=== PATIENT | male | born 1955 | race Caucasian/White ===

== ENCOUNTER 2016-11-30 06:23 | Day surgery (SDC) | payer OTHER ==
[~2016-11-30 06:23] MED LIST: BUPIVACAINE HCL 0.75% INJ/PF (7.5 MG/1 ML) 10 ML SDV OD PRN; KETOROLAC TROMETHAMINE 0.45% 4 DROP/0.4 ML DROPERETTE OD PRN; LIDOCAINE 4% INJ/PF (40 MG/ML) 5 ML AMPUL OD PRN
[2016-11-30] MEDS: TROPICAMIDE 1% OPH SOLN 3 ML OD PRN ×3 (06:44→07:23)
[2016-11-30] MEDS: CYCLOPENTOLATE 0.2%/PHENYLEPHRINE 1% OPH SOLN 2 ML OD PRN ×3 (06:44→07:23)
[2016-11-30] MEDS: BESIFLOXACIN HCL 0.6% OPH SUSP 5 ML BOTTLE OD PRN ×4 (06:45→08:06)
[2016-11-30] MEDS: TETRACAINE HCL 0.5% OPH SOLN 0.6 ML DROPERETTE OD PRN ×2 (06:46→07:24)
[2016-11-30] MEDS ORDERED: MIDAZOLAM 2 MG/2 ML INJ ONE (07:14)
[2016-11-30] MEDS ORDERED: EPINEPHRINE INJ/PF 1 MG/1 ML AMPULE ONE (07:19)
[2016-11-30] MEDS ORDERED: LIDOCAINE 1% INJ-PF (10 MG/ML) 30 ML SDV ONE (07:20)
[2016-11-30] MEDS ORDERED: CHONDR SU A NA/HYALUR INTRAOC KIT (SURGICARE) ONE (07:20)
--- NOTE | 2016-11-30 08:23 | [facility] DISCHARGE SUMMARY E ---
[facility] Discharge Summary NAME: ALDO RDZ AGE: 60Y ADMITTED: 11/30/2016 DISCHARGED: 11/30/2016 PREOPERATIVE DIAGNOSIS: Cataract, right eye. POSTOPERATIVE DIAGNOSIS: Cataract, right eye. HOSPITAL COURSE: The patient is a 60-year-old gentleman who underwent uneventful cataract extraction with intraocular lens implant, right eye, on 11/30/2016. He will be discharged to home. He was instructed to resume preoperative medications, take Tylenol as needed for discomfort, to keep his eye shielded, to use Besivance, Durezol, and Ilevro at 3 p.m. and 8 p.m., and to followup in my office in 1 day. DICTATING PHYSICIAN: MEAGAN REDDY M.D. 1211M 19 PHY#: [id number] ID: [id number] JOB#: [id number] ACCT: [id number] cc:MEAGAN REDDY M.D. >
--- NOTE | 2016-11-30 08:23 | [facility] OPERATIVE REPORT E ---
[facility] Operative Report NAME: ALDO RDZ AGE: 60Y DATE OF SURGERY: 11/30/2016 ROOM: PREOPERATIVE DIAGNOSIS: Cataract, right eye. POSTOPERATIVE DIAGNOSIS: Cataract, right eye. PROCEDURE PERFORMED: Phacoemulsification with posterior chamber intraocular lens, right eye. SURGEON: Kimberly Reddy MD ANESTHESIA: Topical with MAC. INDICATIONS FOR SURGERY: Difficulty driving at night. Best corrected visual acuity 20/40. PROCEDURE: The patient was brought to the operating room and placed on the operative table. Following tetracaine drops, topical anesthesia was administered. This consisted of instrument wipe pledgets soaked in a solution of 4% Xylocaine mixed with 0.75% Marcaine in a 1:2 ratio. A 2 x 1 cm pledget was placed in the superior fornix. A 1 x 1 cm pledget was placed in the inferior fornix. The eye was patched shut for 5 minutes. The patch was removed. The eye was sterilely prepped and draped in the usual manner. Lid speculum was placed in the eye. The pledgets were removed. 4-0 black silk sutures were placed around the superior and the inferior rectus muscles to be used as traction. A conjunctival peritomy was made at the 10 o'clock position. Hemostasis was obtained with bipolar cautery. A posterior limbal groove was created using a crescent knife and dissected anteriorly towards the cornea. A sharp point blade was used to create a paracentesis site at the 2 o'clock position. A 2.4 mm keratome was used to enter the anterior chamber through the groove. Viscoelastic was injected into the anterior chamber. There was a dense synechiae of the iris to the lens at the 1 oclock postion. viscoelatic would not release the adhesion. vaness scissors were place into the anterior chamber and the iris was released from the lens capsule without causing a capsular defect. An anterior capsulotomy was performed using Utrata forceps in a capsulorrhexis fashion, encompassing the scar. Hydrodissection and hydrodelineation were performed. Phacoemulsification was performed in kfzbcl-euo-mffkgnv technique. A total of 24 seconds phaco time was used. Following this, the I/A unit was used to remove residual cortex. Viscoelastic was injected into the capsular bag. Intraocular lens model SN60WF, 17.0 diopters, serial number [id number] was placed in the capsular bag. The I/A unit was used to remove residual viscoelastic. The wound was seen to be watertight under high and low pressure, and no sutures were placed. The intraocular lens was well centered. The pressure was adjusted in the eye to normal pressure. The 4-0 black silk sutures and lid speculum were removed. The eye was shielded after Besivance drops were placed. The patient tolerated the procedure well and was sent to the recovery room in good condition. DICTATING PHYSICIAN: KIMBERLY REDDY M.D. 1211M 16 PHY#: [id number] ID: [id number] JOB#: [id number] ACCT: [id number] cc:KIMBERLY REDDY M.D. > MTDD
== END 2016-11-30 08:45 | disposition home or self-care (01) ==
LOC: SC 06:23
PROVIDERS: ATTEND Ophthalmology
PROC: 08RJ3JZ Replacement of Right Lens with Synthetic Substitute, Percutaneous Approach (ICD-10-PCS; principal; 2016-11-30 07:30)
DX: H25.811 Combined forms of age-related cataract, right eye (principal); E11.9 Type 2 diabetes mellitus without complications; I11.9 Hypertensive heart disease without heart failure; E78.00 Pure hypercholesterolemia, unspecified; E03.9 Hypothyroidism, unspecified; M11.9 Crystal arthropathy, unspecified; K21.9 Gastro-esophageal reflux disease without esophagitis; M10.9 Gout, unspecified; D64.9 Anemia, unspecified; Z87.891 Personal history of nicotine dependence; Z79.51 Long term (current) use of inhaled steroids; Z79.84 Long term (current) use of oral hypoglycemic drugs; Z79.1 Long term (current) use of non-steroidal anti-inflammatories (NSAID)
CPT/HCPCS: 66984; 82962; V2632; J2250; J3490 ×4; J0171; 142

== ENCOUNTER 2016-12-21 08:45 | Day surgery (SDC) | payer OTHER ==
[~2016-12-21 08:45] MED LIST changes: -BUPIVACAINE HCL 0.75% INJ/PF (7.5 MG/1 ML) 10 ML SDV OD PRN; +BUPIVACAINE HCL 0.75% INJ/PF (7.5 MG/1 ML) 10 ML SDV OS PRN; -KETOROLAC TROMETHAMINE 0.45% 4 DROP/0.4 ML DROPERETTE OD PRN; +KETOROLAC TROMETHAMINE 0.45% 4 DROP/0.4 ML DROPERETTE OS PRN; -LIDOCAINE 4% INJ/PF (40 MG/ML) 5 ML AMPUL OD PRN; +LIDOCAINE 4% INJ/PF (40 MG/ML) 5 ML AMPUL OS PRN
[2016-12-21] MEDS ORDERED: EPINEPHRINE INJ/PF 1 MG/1 ML AMPULE ONE (08:54)
[2016-12-21] MEDS ORDERED: LIDOCAINE 1% INJ-PF (10 MG/ML) 30 ML SDV ONE (08:55)
[2016-12-21] MEDS: CYCLOPENTOLATE 0.2%/PHENYLEPHRINE 1% OPH SOLN 2 ML OS PRN ×3 (09:31→09:51)
[2016-12-21] MEDS: TROPICAMIDE 1% OPH SOLN 3 ML OS PRN ×3 (09:31→09:51)
[2016-12-21] MEDS: TETRACAINE HCL 0.5% OPH SOLN 0.6 ML DROPERETTE OS PRN ×2 (09:32→09:51)
[2016-12-21] MEDS: BESIFLOXACIN HCL 0.6% OPH SUSP 5 ML BOTTLE OS PRN ×4 (09:32→10:41)
[2016-12-21] MEDS ORDERED: MIDAZOLAM 2 MG/2 ML INJ ONE (10:04)
[2016-12-21] MEDS: CHONDR SU A NA/HYALUR INTRAOC KIT (SURGICARE) ONE ×2 (10:32)
--- NOTE | 2016-12-21 10:51 | [facility] DISCHARGE SUMMARY E ---
[facility] Discharge Summary NAME: ALDO RDZ AGE: 60Y ADMITTED: 12/21/2016 DISCHARGED: 12/21/2016 PREOPERATIVE DIAGNOSIS: Cataract, left eye. POSTOPERATIVE DIAGNOSIS: Cataract, left eye. HOSPITAL COURSE: The patient is a 60-year-old gentleman who underwent uneventful cataract extraction with intraocular lens implant, left eye, on 12/21/2016. He will be discharged to home. He was instructed to resume preoperative medications, take Tylenol as needed for discomfort, to keep his eye shielded, to use Besivance, Durezol, and Ilevro at 3 p.m. and 8 p.m., and to followup in my office in 1 day. DICTATING PHYSICIAN: MEAGAN REDDY M.D. 1211M 1049 PHY#: [id number] ID: [id number] JOB#: [id number] ACCT: [id number] cc:MEAGAN REDDY M.D. >
--- NOTE | 2016-12-21 10:52 | [facility] OPERATIVE REPORT E ---
[facility] Operative Report NAME: ALDO RDZ AGE: 60Y DATE OF SURGERY: 12/21/2016 ROOM: PREOPERATIVE DIAGNOSIS: Cataract, left eye. POSTOPERATIVE DIAGNOSIS: Cataract, left eye. PROCEDURE PERFORMED: Phacoemulsification with posterior chamber intraocular lens, left eye. SURGEON: Kimberly Reddy MD ANESTHESIA: Topical with MAC. INDICATIONS FOR SURGERY: Difficulty reading road [place]. Best corrected visual acuity 20/50. PROCEDURE: The patient was brought to the operating room and placed on the operative table. Following tetracaine drops, topical anesthesia was administered. This consisted of instrument wipe pledgets soaked in a solution of 4% Xylocaine mixed with 0.75% Marcaine in a 1:2 ratio. A 2 x 1 cm pledget was placed in the superior fornix. A 1 x 1 cm pledget was placed in the inferior fornix. The eye was patched shut for 5 minutes. The patch was removed. The eye was sterilely prepped and draped in the usual manner. Lid speculum was placed in the eye. The pledgets were removed. 4-0 black silk sutures were placed around the superior and the inferior rectus muscles to be used as traction. A conjunctival peritomy was made at the 10 o'clock position. Hemostasis was obtained with bipolar cautery. A posterior limbal groove was created using a crescent knife and dissected anteriorly towards the cornea. A sharp point blade was used to create a paracentesis site at the 2 o'clock position. A 2.4 mm keratome was used to enter the anterior chamber through the groove. Viscoelastic was injected into the anterior chamber. An anterior capsulotomy was performed using Utrata forceps in a capsulorrhexis fashion. Hydrodissection and hydrodelineation were performed. Phacoemulsification was performed in bjnwqa-jtg-bntkcnx technique. A total of 36 seconds phaco time was used. Following this, the I/A unit was used to remove residual cortex. Viscoelastic was injected into the capsular bag. Intraocular lens model SN60WF, 19.0 diopters, serial number [id number] was placed in the capsular bag. The I/A unit was used to remove residual viscoelastic. The wound was seen to be watertight under high and low pressure, and no sutures were placed. The intraocular lens was well centered. The pressure was adjusted in the eye to normal pressure. The 4-0 black silk sutures and lid speculum were removed. The eye was shielded after Besivance drops were placed. The patient tolerated the procedure well and was sent to the recovery room in good condition. DICTATING PHYSICIAN: KIMBERLY REDDY M.D. 1211M [id number] PHY#: [id number] ID: [id number] JOB#: [id number] ACCT: [id number] cc:KIMBERLY REDDY M.D. >
== END 2016-12-21 11:12 | disposition home or self-care (01) ==
LOC: SC 08:45
PROVIDERS: ATTEND Ophthalmology
PROC: 08RK3JZ Replacement of Left Lens with Synthetic Substitute, Percutaneous Approach (ICD-10-PCS; principal; 2016-12-21 10:30)
DX: H25.812 Combined forms of age-related cataract, left eye (principal); Z96.1 Presence of intraocular lens; J44.9 Chronic obstructive pulmonary disease, unspecified; I10 Essential (primary) hypertension; M19.90 Unspecified osteoarthritis, unspecified site; E11.9 Type 2 diabetes mellitus without complications; D64.9 Anemia, unspecified; Z79.51 Long term (current) use of inhaled steroids; Z79.899 Other long term (current) drug therapy; Z79.1 Long term (current) use of non-steroidal anti-inflammatories (NSAID); Z79.84 Long term (current) use of oral hypoglycemic drugs; Z87.891 Personal history of nicotine dependence
CPT/HCPCS: 66984; 82962; V2632; J2250; J3490 ×4; J0171; 142

== ENCOUNTER 2017-09-02 06:26 | Day surgery (SDC) | payer OTHER ==
[2017-09-02] MEDS ORDERED: MIDAZOLAM 2 MG/2 ML INJ ONE (07:12)
[2017-09-02] MEDS ORDERED: LIDOCAINE 2% INJ-PF (20 MG/ML) 10 ML AMPUL ONE (07:13)
[2017-09-02] MEDS ORDERED: FENTANYL CITRATE INJ/PF 100 MCG/2 ML AMPUL ONE (07:13)
[2017-09-02] MEDS ORDERED: PROPOFOL INJ 200 MG/20 ML VIAL IV ONE (07:13)
[2017-09-02] MEDS: POVIDONE-IODINE 5% OPH PREP SOLN 30 ML ONE ×2 (07:39)
[2017-09-02] MEDS: TETRACAINE HCL 0.5% OPH SOLN 2 ML ONE ×2 (07:41)
[2017-09-02] MEDS: BALANCED SALT IRRIG SOLN COMB2 15 ML BOTTLE ONE ×2 (07:46)
[2017-09-02] MEDS: THROMBIN (BOVINE) TOPICAL 5000 UNIT VIAL ONE ×2 (07:46)
[2017-09-02] MEDS: BUPIVACAINE HCL 0.75% INJ/PF (7.5 MG/1 ML) 10 ML SDV ONE ×2 (07:51)
[2017-09-02] MEDS: LIDOCAINE 2%/EPINEPHRINE INJ 20 ML VIAL ONE ×2 (07:51)
[2017-09-02] MEDS: TOBRAMYCIN SULFATE/DEXAMETH OPH OINTMENT 3.5 GM ONE ×2 (08:33)
--- NOTE | 2017-09-02 08:55 | [facility] DISCHARGE SUMMARY E ---
[facility] Discharge Summary NAME: ALDO RDZ AGE: 61Y ADMITTED: 09/02/2017 DISCHARGED: 09/02/2017 FINAL DIAGNOSIS: Bilateral upper eyelid dermatochalasis with visual field loss. INDICATIONS FOR SURGERY: The patient is a 61-year-old gentleman who complains of difficulty seeing peripherally and having to constantly raise his lids and brows to see better. SUMMARY: He underwent uneventful bilateral upper eyelid blepharoplasty. He will be discharged to home. He was instructed to resume preoperative medications. He was instructed to keep the head of his bed elevated 45 degrees, use a blepharoplasty ice pack 10 minutes out of every hour while awake for the first 24 hours, to use TobraDex ointment to both upper lids twice a day, and to follow up in my office in 10 days. DICTATING PHYSICIAN: MEAGAN REDDY M.D. 1209M [id number] PHY#: [id number] ID: [id number] JOB#: [id number] ACCT: [id number] cc:MEAGAN REDDY M.D. >
--- NOTE | 2017-09-02 08:55 | [facility] OPERATIVE REPORT E ---
[facility] Operative Report NAME: ALDO RDZ AGE: 61Y DATE OF SURGERY: 09/02/2017 ROOM: PREOPERATIVE DIAGNOSIS: Bilateral upper eyelid dermatochalasis with visual field loss. POSTOPERATIVE DIAGNOSIS: Bilateral upper eyelid dermatochalasis with visual field loss. PROCEDURE PERFORMED: Bilateral upper eyelid blepharoplasty. SURGEON: MEAGAN REDDY M.D. ANESTHESIA: Local with MAC. PROCEDURE: The patient was brought to the operating room and under monitored anesthesia care the procedure commenced. Tetracaine drops were placed in both eyes. Both upper eyelids were sterilely prepped and draped in the usual manner. Using a marking pen the upper eyelid crease was marked on both eyes and 0.3 mm forceps were used to estimate the excess upper eyelid skin to be excised. Local anesthesia was administered. This consisted of 3 mL of 2% Xylocaine with epinephrine mixed with 0.75% Marcaine equally spaced in both upper lids and diffused with a Q-Tip. Attention was directed to the left upper lid where the previously marked elliptical piece of skin was removed. Hemostasis was obtained with bipolar cautery. The orbital septum was opened and retroseptal fat was grasped with a hemostat, cut, and cauterized. Thrombin was placed on the incision. An identical procedure was performed on the right upper lid. Wound closure was completed using combination of interrupted 6-0 silk sutures, 3 equally spaced to both upper lids, taking a deep bite of the fascia as well as running 6-0 nylon suture in both upper lids. There was good hemostasis and full closure of the lids at the end of the surgery. tobradex ointment was placed on the incisions. The patient tolerated the procedure well and was sent to the recovery room in good condition. DICTATING PHYSICIAN: MEAGAN REDDY M.D. 1209M [id number] PHY#: [id number] ID: [id number] JOB#: [id number] ACCT: [id number] cc:MEAGAN REDDY M.D. > MTDD
== END 2017-09-02 09:20 | disposition home or self-care (01) ==
LOC: SC 06:26
PROVIDERS: ATTEND Ophthalmology
DX: H02.831 Dermatochalasis of right upper eyelid (principal); H02.834 Dermatochalasis of left upper eyelid; H53.453 Other localized visual field defect, bilateral; Z96.1 Presence of intraocular lens; D23.11 Other benign neoplasm of skin of right eyelid, including canthus; E11.9 Type 2 diabetes mellitus without complications; E78.00 Pure hypercholesterolemia, unspecified; I11.9 Hypertensive heart disease without heart failure; E03.9 Hypothyroidism, unspecified; J44.9 Chronic obstructive pulmonary disease, unspecified; M19.90 Unspecified osteoarthritis, unspecified site; K21.9 Gastro-esophageal reflux disease without esophagitis; M10.9 Gout, unspecified; G47.30 Sleep apnea, unspecified; Z87.891 Personal history of nicotine dependence; Z79.51 Long term (current) use of inhaled steroids; Z79.84 Long term (current) use of oral hypoglycemic drugs; Z79.899 Other long term (current) drug therapy; Z79.1 Long term (current) use of non-steroidal anti-inflammatories (NSAID)
CPT/HCPCS: 82962; 15823; J2250; J3490 ×7; J3010; J2704; 103

== ENCOUNTER → 2020-03-28 | Outpatient (CLI) | payer OTHER ==
--- NOTE | 2020-03-28 16:04 | RADIOLOGY REPORT (SQ) ---
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 Left jaw feels uncomfortable. Thyro id since cause pressure. Has been this way for many years. COMPARISON: None. TECHNIQUE: Post IV contrasted scanning from skull base through lung apices with review of bone, soft tissue and lung windows. Reconstructed coronal and sagittal MPR images reviewed. All images stored on PACS. All CT scanners at this facility use dose modulation, iterative reconstruction, and/or weight based d osing when appropriate to reduce radiation dose to as low as reasonably achievable (ALARA). [facility]: Dose Right [facility]: CareDose [facility]: Dose Right [facility]: Teradose 4D [facility]: HexaTech CONTRAST TYPE AND DOSE: contrast/concentration: Isovue 350.00 mmol/ml; Total Contrast Delivered: 75. 0 ml; Total Saline Delivered: 16.6 ml RENAL FUNCTION: GFR > 60. RADIATION DOSE: . LIMITATIONS: None. FINDINGS: SKULL BASE: Intact. MAJOR SALIVARY GLANDS: There is a large left submandibular sialolith measuring 2.2 x 1.5 x 2.3 cm. A symmetric atrophy of the left submandibular gland. No ductal dilation. Symmetric appearance of the parotid glands bilaterally. No parotid gland mass. LYMPHADENOPATHY: No adenopathy. MUCOSAL MASSES OR ASYMMETRY: No mucosal masses or asymmetry. LARYNX/CORDS: No abnormal findings. VASCULAR STRUCTURES: The major vessels are patent. LUNG APICES: Clear. BONES: Intact. THYROID: Normal size. No masses. PARANASAL SINUSES: Clear. OTHER: No other significant finding. IMPRESSION: Large left submandibular sialolith. Asymmetric atrophy of the left submandibular gland. TECHNICAL DOCUMENTATION: JOB ID: [id number] Quality ID # [id number]: Final reports with documentation of one or more dose reduction techniques (e.g., Au tomated exposure control, adjustment of the mA and/or kV according to patient size, use of iterative reconstruction technique) 2010 [email or web address]- All Rights Reserved Reading location - IP/workstation name: [email or web address]
== END ==
LOC: RAD 12:42
PROVIDERS: ATTEND Otolaryngology
DX: K11.5 Sialolithiasis (principal)
CPT/HCPCS: 70491; 82565